=== PATIENT | male | born 1970 | race Caucasian/White ===

== ENCOUNTER 2018-01-07 10:29 | Emergency (ER) | payer OTHER ==
[~2018-01-07] VITALS: Ht 208.3 cm; Wt 113.4 kg
[2018-01-07] MEDS ORDERED: NEURONTIN300 MG PO (14:16)
[2018-01-07] MEDS ORDERED: MUPIROCIN22 GM TOP (14:16)
[2018-01-07] MEDS ORDERED: KETO10TA2 PO (14:16)
== END 2018-01-07 14:25 | disposition home or self-care (01) ==
LOC: ER 10:29
DX: B02.8 Zoster with other complications (principal); R51 Headache